=== PATIENT | female | born 1955 | race Caucasian/White ===

== ENCOUNTER → 2016-06-29 | Outpatient (CLI) | payer BC ==
[~2016-06-29] MED LIST: MULTIPLE VITAMI1 CAP PO; OMEGA 31000 MG PO; PREMPRO 0.625/21 TAB PO; VITAMIN C500 MG PO
== END ==
LOC: COL.LAB 11:25
DX: Z01.89 Encounter for other specified special examinations (principal)

== ENCOUNTER → 2016-07-18 | Outpatient (CLI) | payer BC | LOC: MC.RAD 08:37 | DX: Z12.31 Encounter for screening mammogram for malignant neoplasm of breast (principal) ==

== ENCOUNTER → 2017-09-05 | Outpatient (CLI) | payer BC | LOC: MC.RAD 07-31 11:20 | DX: Z12.31 Encounter for screening mammogram for malignant neoplasm of breast (principal) ==

== ENCOUNTER → 2018-03-14 | Outpatient (CLI) | payer BC | LOC: COL.RAD 10:12 | DX: K80.20 Calculus of gallbladder without cholecystitis without obstruction (principal); K80.80 Other cholelithiasis without obstruction ==

== ENCOUNTER 2018-04-19 06:36 | Day surgery (SDC) | payer BC ==
[~2018-04-19] VITALS: Ht 170.2 cm; Wt 79.5 kg
[2018-04-19] VITALS (10 sets, daily range): BP systolic 102–172; BP diastolic 61–79; PULSE 52–81; TEMP 97.6–98.5
[2018-04-19] MEDS ORDERED: XALATAN EYE DROPS OD (07:16)
[2018-04-19] MEDS ORDERED: COZAAR100 MG PO (07:17)
[2018-04-19] MEDS ORDERED: ULTRAM 50MG TAB50 MG PO (11:45)
== END 2018-04-19 14:20 | disposition home or self-care (01) ==
LOC: SDCO 06:36
DX: K80.12 Calculus of gallbladder with acute and chronic cholecystitis without obstruction (principal); I10 Essential (primary) hypertension; E78.5 Hyperlipidemia, unspecified; Z85.820 Personal history of malignant melanoma of skin; M19.90 Unspecified osteoarthritis, unspecified site; Z90.710 Acquired absence of both cervix and uterus; Z82.49 Family history of ischemic heart disease and other diseases of the circulatory system; Z82.3 Family history of stroke; Z88.5 Allergy status to narcotic agent; Z88.1 Allergy status to other antibiotic agents; Z88.2 Allergy status to sulfonamides; Z88.8 Allergy status to other drugs, medicaments and biological substances
CPT/HCPCS: J0690; J1100; J2405; J2550; J2704; J3010; J7120

== ENCOUNTER → 2018-11-05 | Outpatient (CLI) | payer BC ==
[~2018-11-05] MED LIST changes: +COZAAR100 MG PO; +ULTRAM 50MG TAB50 MG PO; +XALATAN EYE DROPS OD
== END ==
LOC: MC.RAD 10-14 10:45
DX: Z12.31 Encounter for screening mammogram for malignant neoplasm of breast (principal)

== ENCOUNTER → 2019-12-04 | Outpatient (CLI) | payer MEDICARE, BC | LOC: MC.RAD 07:29 | DX: Z12.31 Encounter for screening mammogram for malignant neoplasm of breast (principal) ==

== ENCOUNTER → 2020-08-30 | Outpatient (CLI) | payer MEDICARE, BC | LOC: ZCOL.LAB 17:05 | DX: H60.503 Unspecified acute noninfective otitis externa, bilateral (principal) ==

== ENCOUNTER → 2020-09-10 | Outpatient (CLI) | payer MEDICARE, BC | LOC: COL.RAD 10:04 | DX: R31.29 Other microscopic hematuria (principal) ==

== ENCOUNTER → 2021-03-01 | Outpatient (CLI) | payer MEDICARE, BC | LOC: MC.RAD 10:26 | DX: Z12.31 Encounter for screening mammogram for malignant neoplasm of breast (principal) ==